=== PATIENT | male | born 1960 ===

== ENCOUNTER 2021-04-12 13:23 | Inpatient (IN) | payer OTHER ==
[~2021-04-12] VITALS: Ht 170.2 cm; Wt 90.9 kg
[2021-04-12] MEDS ORDERED: LISI5 PO (13:44)
[2021-04-12] MEDS ORDERED: ATOR20 PO (13:44)
[2021-04-12 15:26] LABS: Base Excess Venous -2.8 mmol/L; Bicarbonate Venous 22.6 mmol/L (24.0-30.0); PCO2 Venous 34.2 mmHg (38-42); PO2 Venous 66.8 mmHg (38-42); pH Blood Venous 7.41 (7.34-7.37)
[2021-04-12] MEDS ORDERED: ERGO400 PO (18:10)
[2021-04-12] MEDS ORDERED: FISH OIL 1,2001 EAC7 PO (18:10)
--- NOTE | 2021-04-12 18:43 | NUR ---
ARRIVAL TO PCU/SHIFT SUMMARY PATIENT ARRIVED FROM ED VIA GURNEY AND TRANSPORTED TO PCU BED VIA STAND BY ASSIT. PATIENT REPORTS NO CHEST PAIN, PAIN, OR SHORTNESS OF BREATH. PATIENT IS A/OX4. VSS. TELE SR 84. SPO2 >90% ON 60L 70% HIGH FLOW. CALL LIGHT WITHIN REACH AND BED IN LOWEST POSITION. WILL CONTINUE TO MONITOR AND PROVIDE CARE UNTIL HAND OFF WITH NEXT SHIFT.
[2021-04-13 03:41] LABS: BASOPHILS PERCENT AUTO 0 % (0-2); EOSINOPHILS PERCENT AUTO 0 % (0-6); Hematocrit 45.5 % (37.0-53.0); Hemoglobin 15.5 g/dL (13.5-17.5); IMMATURE GRAN ABSOLUTE AUTO 0.02 K/mm3 (0.00-0.10); IMMATURE GRAN PERCENT AUTO 1 % (0-1); LYMPHOCYTES ABSOLUTE AUTO 0.62 K/mm3 (0.84-5.20); LYMPHOCYTES PERCENT AUTO 19 % (21-46); MONOCYTES ABSOLUTE AUTO 0.36 K/mm3 (0.16-1.47); MONOCYTES PERCENT AUTO 11 % (4-13); Mean Corpuscular HGB 31.3 pg (26.0-34.0); Mean Corpuscular HGB Conc 34.1 g/dL (31.5-36.5); Mean Corpuscular Volume 92 fL (80-100); Mean Platelet Volume 9.9 fL (9.1-12.4); NEUTROPHILS ABSOLUTE AUTO 2.28 K/mm3 (1.96-9.15); NEUTROPHILS PERCENT AUTO 70 % (41-73); Platelet Count 199 K/mm3 (150-400); RDW Standard Deviation 44.4 fL (35.1-46.3); Red Blood Cell Count 4.95 M/mm3 (4.30-5.90); White Blood Cell Count 3.28 K/mm3 (4.00-11.30)
[2021-04-13 04:13] LABS: Albumin, Blood 2.4 g/dL (3.4-5.0); Albumin/Globulin Ratio 0.6 (0.8-1.8); Bilirubin, Total 0.4 mg/dL (0.1-1.0); Bun/Creatinine Ratio 20.5 (12.0-20.0); C-REACTIVE PROTEIN, EXT RANGE 6.02 mg/dL (0.000-0.300); Calcium, Blood 8.4 mg/dL (8.5-10.1); Creatinine, Blood 1.27 mg/dL (0.60-1.20); Globulin, Blood 3.9 g/dL (2.2-4.0); Potassium, Blood 4.6 mmol/L (3.5-5.5); Total Protein, Blood 6.3 g/dL (6.4-8.2)
--- NOTE | 2021-04-13 09:58 | NUR ---
CARE ASSUMPTION THIS RN ASSUMED CARE FROM SALUD QUAN AT 0700. PATIENT IS A/OX4. REPORTS NO CHEST PAIN, PAIN, OR SOB. VSS. TELE SR 88. SPO2 >88% ON HIGH FLOW NASAL CANAL 55L 90%. PATIENT ROTATES IN BED INDEPENDENMTLY AND CALLS WHEN NEEDING TO GO TO THE BTHROOM WITH A STAND BY ASSIT. CALL LIGHT WITHIN REACH AND BED IN LOWEST POSITON. WILL CONTINUE TO MONITOR AND PROVIDE CARE
--- NOTE | 2021-04-13 18:17 | NUR ---
SHIFT SUMMARY PATIENT IS A/OX4. VSS. SPO2 >90% ON 50L 75% ON HIGH FLOW NASAL CANCAL. PATRICIA SR. PATIENT REPORTS NO CHEST PAIN, PAIN, OR SHORTNESS OF BREATH. PATIENT CURRENTLY SITTING IN CHAIR AND HAS SAT IN CHAIR SINCE AROUND LUNCH TIME. NO ACUTE CHANGES. CALL LIGHT WITHIN REACH AND BED IN LOWEST POSITION. WILL CONTINUE TO MONITOR AND PROVIDE CARE UNTIL HAND OFF WITH NEXT SHIFT.
[2021-04-14 04:09] LABS: Alanine Aminotransfer (ALT/SGP 94 U/L (12-78); Albumin, Blood 2.6 g/dL (3.4-5.0); Albumin/Globulin Ratio 0.7 (0.8-1.8); Alk Phos 85 U/L (50-136); Anion Gap 7 mmol/L (6-16); Aspartate Aminotrans (AST/SGOT 133 U/L (12-37); Bilirubin, Total 0.4 mg/dL (0.1-1.0); Blood Urea Nitrogen 36 mg/dL (8-24); Bun/Creatinine Ratio 33.6 (12.0-20.0); CO2, Blood 21 mmol/L (21-32); Calcium, Blood 8.6 mg/dL (8.5-10.1); Chloride, Blood 111 mmol/L (98-108); Creatinine, Blood 1.07 mg/dL (0.60-1.20); Globulin, Blood 3.8 g/dL (2.2-4.0); Glomerular Filtration Rate >60 (60-); Glucose, Blood 140 mg/dL (70-99); Sodium, Blood 139 mmol/L (136-145); Total Protein, Blood 6.4 g/dL (6.4-8.2)
--- NOTE | 2021-04-14 09:09 | NUR ---
CARE ASSUMPTION THIS RN ASSUMED CARE AT 0700. PATIENT IS A/OX4. VSS. SPO2 >90% ON HIGH FLOW NASAL CANAL; 45L 65%. OPATIENT REPORTS NO CHEST PAIN, PAIN, OR SHORTNESS OF BREATH. AMBULATES TO AND FROM BED TO CHAIR INDEPDENTLY, BUT IS REMINDED TO CALL US SO WE CAN BE HERE FOR SUPERVISION. PATIENT SITTING IN CHAIR WITH CALL LIGHT WITHIN REACH. WILL CONTINUE TO MONITOR AND PROVIDE CARE
--- NOTE | 2021-04-14 17:15 | NUR ---
SHIFT SUMMARY PATIENT IS A/OX4. VSS. SPO2 >90% ON HIGH FLOW NASAL CANNULA AT 45L AND 65%. TELE SR. PATIENT REPORTS NO PAIN, CHEST PAIN, OR SHORTNESS OF BREATH. PATIENT TRANSFERS INDEPENDENTLY FROM CHAIR TO BED, AND THIS RN ENCOURAGED HIM TO CALL BEFORE HAND SO WE CAN BE THERE A STAND BY ASSIST. NO ACUTE CHANGES THIS SHIFT. CALL LIGHT WITHIN REACH AND PATIENT SITTING IN CHAIR AT BEDSIDE. WILL CONTINUE TO MONITOR AND PROVIDE CARE UNTIL HAND OFF WITH NEXT SHIFT.
--- NOTE | 2021-04-15 05:44 | NUR ---
SHIFT SUMMARY NO ACUTE CHANGES THIS SHIFT. PT A&OX4. PLEASANT. SP02>90% ON AIRVO, 40L 65% FIO2. PT C/O OF DRY COUGH. DESATS TO MID 80'S WITH EXERTION. TELEMETRY READS NSR, HR 70'S. PT USES URINAL OR BSC. SALINE LOCKED. PT DID NOT SLEEP MUCH DURING NIGHT. DID NOT WANT ANY REMEDIES. DID GIVE TYLENOL D/T HIPS HURTING. CALL LIGHT IN REACH.
--- NOTE | 2021-04-15 13:41 | NUR ---
UPDATE PHYSICIAN TO SEE PT. INFORMED THAT PT HAD POSSIBLE ST CHANGES AND EKG IN CHART. NO NEW ORDERS AT THIS TIME.
--- NOTE | 2021-04-15 18:17 | NUR ---
SHIFT SUMMARY PT ALERT AND ORIENTED X 4. HR STABLE. BP STABLE. NO CP OR PRESSURE NOTED. ST ELEVATION NOTED TELEMETRY. EKG DONE, ST ELEVATION ON LEAD 2. PHYSICIAN AWARE. EKG IN CHART. OXYGEN SATURATION TITRATED DOWN FROM 45L AND 65% ON AIRVO TO 35 L AND 55% ON AIRVO. OXYGEN SATURATION MAINTAINED ABOVE 92%. PT EAGER TO IMPROVE AND PRONE THIS NOC. PT UP IN CHAIR THROUGHOUT DAY. PT'S DAUGHTER UPDATED PER PT REQUEST. PT SBA. WILL CONT TO MONITOR UNTIL REPORT GIVEN TO NIGHTSHIFT RN.
--- NOTE | 2021-04-16 06:17 | NUR ---
SHIFT SUMMARY NO ACUTE CHANGES THIS SHIFT. PT A&OX4. SP02>90% ON AIRVO, 40L 55%. PT HAS HARSH DRY COUGH, PAINFUL WHEN COUGHING. TELEMETRY READS NSR, HR 50'S-70'S. PT SELF PRONED MOST OF NIGHT, MOTIVATED AND EAGER TO GET BETTER. UP TO BSC AND URINAL TO VOID. SITTING UP IN CHAIR PART OF SHIFT. AMBULATED BY HIMSELF. CALL LIGHT IN REACH.
--- NOTE | 2021-04-16 18:24 | NUR ---
SHIFT SUMMARY PT ALERT AND ORIENTED X 4. HR STABLE. BP STABLE. NO CP OR PRESSURE. ST ELEVATION NOTED IN MULTIPLE LEADS ON TELE. PHYSICIAN NOTIFIED. NO NEW ORDERS. TELE STRIP IN CHART WITH ST MEASURMENTS. PT SBA TO COMMODE. PT TITRATED DOWN ON AIRVO TO 35L AND 40%, OXYGEN SATURATION MAINTAINED ABOVE 92%. PT UP IN CHAIR DURING SHIFT. PT ENCOURAGED TO PRONE DURING NOC. WILL CONT TO MONITOR UNTIL REPORT GIVEN TO SHELLY QUAN.
--- NOTE | 2021-04-17 06:11 | NUR ---
SHIFT SUMMARY NO ACUTE CHANGES THIS SHIFT. PT A&OX4. MOTIVATED AND PLEASANT. SP02>92 ON AIRVO 40L 55% AT START OF SHIFT. DECREASED TO 8L HIFLO NC AND STILL MAINTAINING ABOVE 92%. PT HAS DRY HARSH COUGH THAT IS PAINFUL. PT USED URINAL TO VOID. SELF PRONED DURING SHIFT. CALL LIGHT IN REACH.
--- NOTE | 2021-04-17 12:17 | NUR ---
PATIENT ALERT AND ORIENTED X4. NEURO WNL. PERRLA. DENIES NUMBNESS/TINGLING. UP WALKING AROUND ROOM. TELE SHOWING SINUS RHTYHM WITH HR 60-70'S. DENIES CHEST PAIN/PRESSURE. SOME ST ELEVATION SHOWN IN ALL LEADS, AWARE NO CONCERNS AT THIS POINT. BP SOFT AT TIMES. ON 8L HIGH FLOW NASAL CANNULA THIS AM. ABLE TO TITRATE DOWN TO 7L. SATING MID 90'S. OCCASIONAL DRY COUGH. LUNGS SOUNDING CLEAR AND DIM IN BASES. USING IS AT BEDSIDE. DENIES ABDOMINAL PAIN/NAUSEA. HOLDING STOOL SOFTNER THIS AM FOR FREQUENT BOWEL MOVEMENTS. UP TO BATHROOM INDEPENDENTLY. REMDESIVIR INFUSING AT THIS TIME. EATING AND DRINKING WELL. DENIES NEEDS AT THIS TIME. TALKING WITH FAMILY ON PHONE THROUGHOUT DAY. WILL CONTINUE TO MONITOR. UP IN RECLINER AT THIS TIME.
--- NOTE | 2021-04-17 17:43 | NUR ---
SHIFT SUMMARY: NO ACUTE CHANGES. SEE PREVIOUS NOTE. NO CHANGES IN TELE. PATIENT NOW ON 6L HIGH FLOW NASAL CANNULA SATING MID 90'S. UP IN ROOM AD LI. USING BATHROOM AND SITTING IN RECLINER. DENIES NEEDS. EATING DINNER AT THIS TIME. REMDESIVIR AND ANTIBOITICS INFUSED. VITAL SIGNS REMAIN STABLE. WILL CONTINUE TO MONITOR AND REPORT OFF TO ONCOMING RN.
--- NOTE | 2021-04-17 21:43 | NUR ---
CARE ASSUMPTION PT IS AXO X4. PT DENYING ANY SOB, PAIN OR NAUSEA. O2 SATS AT 97% ON 6L NC SO O2 TITRATED DOWN TO 4L. VSS AND PT DENYING ANY NEEDS AT THIS TIME. PT IS LYING PRONE IN BED W CALL LIGHT WITHIN REACH.
--- NOTE | 2021-04-18 05:48 | NUR ---
CERTIFIED PROFESSIONAL CODER SUMMARY PT IS AXO X4 AND USES HIS CALL LIGHT TO MAKE HIS NEEDS KNOWN. PT HAS MAINTAINED O2 SATS >91% ON 4L MOST OF THE SHIFT AND WAS TITRATED DOWN TO 3L THIS AM. PT ABLE TO AMBULATE UNASSISTED W/O DESATTING THIS SHIFT. PT HAS OCCASIONAL NONPRODUCTIVE COUGH. NO REPORTS OF ANY PAIN OR NAUSEA. TELE SHOWING SR IN THE 60'S MOST OF THE SHFT BUT SB LOW 49 WHILE ASLEEP THIS SHIFT. PT SLEPT PRONED FOR MOST OF THIS SHIFT. WILL REPORT TO ONCOMING RN.
[2021-04-18 09:58] LABS: Anion Gap 6 mmol/L (6-16); Blood Urea Nitrogen 28 mg/dL (8-24); Bun/Creatinine Ratio 30.8 (12.0-20.0); CO2, Blood 24 mmol/L (21-32); Calcium, Blood 8.2 mg/dL (8.5-10.1); Chloride, Blood 110 mmol/L (98-108); Creatinine, Blood 0.91 mg/dL (0.60-1.20); Glomerular Filtration Rate >60 (60-); Glucose, Blood 140 mg/dL (70-99); Potassium, Blood 3.8 mmol/L (3.5-5.5); Sodium, Blood 140 mmol/L (136-145)
--- NOTE | 2021-04-18 17:07 | NUR ---
PT REMAINS A&OX4. VSS. NO C/O PAIN. AFEBRILE. AUO. NO BM. TOLERATING CURRENT DIET. SUPPLEMENTAL O2 WEANED TO RA- TOLERATING WITH NO S/S OF RESPIRATORY DISTRESS. TENTATIVE D/C HOME TOMORROW. FREQUENT ROUNDS TO ENSURE PT SAFETY. PT IN NO APPARENT DISTRESS AT THIS TIME. WILL CONTINUE TO MONITOR UNTIL TRANSFER OF CARE TO ONCOMING RN.
--- NOTE | 2021-04-18 21:15 | NUR ---
ASSUMED CARE OF PATIENT AT APPROXIMATELY 1910 FROM KVNG Wiseman RN. PATIENT ALERT AND ORIENTED X4; INDEPENDENT IN ROOM. PATIENT DENIES PAIN, NUMBNESS, TINGLING, DIZZINESS, AND NAUSEA. NSR ON TELE; OXYGEN SATURATION ABOVE 90% ON ROOM AIR; WILL PUT NASAL CANNULA ON FOR SLEEP AND PRONE TONIGHT; PATIENT OXYGEN SATURATION DROPPED TO 87% WHILE NAPPING IN CHAIR; WILL USE 1LPM VIA NC. PIV S/L.
--- NOTE | 2021-04-19 00:19 | NUR ---
PATIENT ACCIDENTLY REMOVED 2LPM VIA NC WHILE SLEEPING AND DROPS TO 87%; QUICKLY RECOVERS AFTER NC PUT BACK ON.
--- NOTE | 2021-04-19 06:54 | NUR ---
PATIENT SLEPT ABOUT SIX HOURS PRONE THEN UP TO CHAIR THIS MORNING. NO ACUTE CHANGES. ROOM AIR WHEN AWAKE.
--- NOTE | 2021-04-19 10:14 | NUR ---
REJI hose were applied this morning after assessment of pitting edema of his legs below the knees.
--- NOTE | 2021-04-19 11:24 | NUR ---
home O2 eval in progress. Dr. Hidalgo rounded just a few minutes ago.
--- NOTE | 2021-04-19 12:10 | NUR ---
Notified Dr. Hidalgo of completion of Home O2 evaluation; pt is now on 4 l/min of O2. Kat the shutdown planner called to say that she has ordered the Oxygen to be delivered here to the hospital before pt is discharged home.
--- NOTE | 2021-04-19 14:27 | NUR ---
Received phone call from Kat discharge planner2.5 hours ago that the pt would be set up for [facility] delivery of oxygen for home use. AT this time, follow up call to [facility] answering service and there is no information/account set up yet for this patient, per [place] answering service office manager receptionist. Pt information was given over the phone for O2 to be delivered here to the hospital so that the pt can be discharged home. Spoke with Mata the [facility] rep and he will be delivering the oxygen after stopping by the office.
--- NOTE | 2021-04-19 15:40 | NUR ---
Discharge instructions, follow up appointment, and medications to take at home were reviewed with the patient. He received a folder with all the written materials for discharge. Mata from [facility] came to the hospital with the pt's oxygen for transportation home. This was set up for the patient and pt was taken out in wheelchair to his private vehicle driven by his . Mata is going to the pt's home to meet them there and set up the oxygen for home use as well.
--- NOTE | 2021-04-22 10:27 | NUR ---
Per Dr. Lauri Hidalgo discharge appropriate on: 04/19/21. Patient does not oppose to discharge and ready to go home for the holidays. Patient discharged to his residence. Transportation from hospital to residence provided by family. DME: Home Oxygen setup ordered through [facility]. Patient is COVID positive; [facility] Transition of Care will contact patient to schedule Telehealth hospital follow-up with PCP. No barriers to discharge at this time.
== END 2021-04-19 15:40 | disposition home or self-care (01) | DRG 871 ==
LOC: ER 13:23 → PCU 17:48 → ERHOLD 17:48 → PCU 17:55
PROVIDERS: Emergency Medicine; Internal Medicine; ADMIT Family Medicine
PROC: 8E0ZXY6 Isolation (ICD-10-PCS; principal; 2021-04-12)
PROC: XW033E5 Introduction of Remdesivir Anti-infective into Peripheral Vein, Percutaneous Approach, New Technology Group 5 (ICD-10-PCS; 2021-04-12)
PROC: 3E0333Z Introduction of Anti-inflammatory into Peripheral Vein, Percutaneous Approach (ICD-10-PCS; 2021-04-12)
DX: A41.89 Other specified sepsis (principal); U07.1 COVID-19; J96.01 Acute respiratory failure with hypoxia; J12.82 Pneumonia due to coronavirus disease 2019; N17.9 Acute kidney failure, unspecified; I10 Essential (primary) hypertension; E78.5 Hyperlipidemia, unspecified; E78.2 Mixed hyperlipidemia; R73.03 Prediabetes; E55.9 Vitamin D deficiency, unspecified; Z79.899 Other long term (current) drug therapy
CPT/HCPCS: 36415; 71045; 71260; 80048; 80053; 82803; 83880; 84145; 84484; 85025; 85651; 86140; 93005; 93010; 94660; 94760; 94761; 94762; 96365; 96375; 99285-25; A9270; J0696; J1100; J1650; J7030; J7050; Q9967

== ENCOUNTER → 2021-04-12 | Outpatient (CLI) | payer OTHER ==
[~2021-04-12] MED LIST: ATOR20 PO; ERGO400 PO; FISH OIL 1,2001 EAC7 PO; LISI5 PO
[2021-04-12 13:47] LABS: Albumin, Blood 3.2 g/dL (3.4-5.0); Albumin/Globulin Ratio 0.9 (0.8-1.8); Bilirubin, Total 0.4 mg/dL (0.1-1.0); Creatinine, Blood 1.93 mg/dL (0.60-1.20); Globulin, Blood 3.5 g/dL (2.2-4.0); Total Protein, Blood 6.7 g/dL (6.4-8.2)
[2021-04-12 14:10] LABS: Hematocrit 47.8 % (37.0-53.0); Hemoglobin 16.5 g/dL (13.5-17.5); Mean Corpuscular HGB 31.4 pg (26.0-34.0); Mean Corpuscular HGB Conc 34.5 g/dL (31.5-36.5); Mean Corpuscular Volume 91 fL (80-100); Mean Platelet Volume 10.6 fL (9.1-12.4); Platelet Count 185 K/mm3 (150-400); RDW Coefficient Variation 13.1 % (11.7-14.2); RDW Standard Deviation 43.8 fL (35.1-46.3); Red Blood Cell Count 5.25 M/mm3 (4.30-5.90); White Blood Cell Count 4.53 K/mm3 (4.00-11.30)
[2021-04-12 15:25] LABS: BAND PERCENT MAN 13 % (0-8); BASOPHILS ABSOLUTE MAN 0.04 K/mm3 (0.00-0.23); BASOPHILS PERCENT MAN 1 % (0-2); EOSINOPHILS PERCENT MAN 0 % (0-6); LYMPHOCYTES ABSOLUTE MAN 0.36 K/mm3 (0.84-5.20); LYMPHOCYTES PERCENT MAN 8 % (21-46); MONOCYTES ABSOLUTE MAN 0.58 K/mm3 (0.16-1.47); MONOCYTES PERCENT MAN 13 % (4-13); NEUTROPHILS ABSOLUTE MAN 3.53 K/mm3 (1.96-9.15); SEG NEUTROPHILS PERCENT MAN 65 % (41-73); TOTAL CELLS COUNTED 100
== END | disposition home or self-care (01) ==
LOC: LAB SHORT 13:15
PROVIDERS: Chiropractor
DX: G47.34 Idiopathic sleep related nonobstructive alveolar hypoventilation (principal); R00.0 Tachycardia, unspecified
CPT/HCPCS: 80053; 83880; 85025; 85379

== ENCOUNTER 2021-07-19 07:54 | Day surgery (SDC) | payer OTHER ==
[~2021-07-19] VITALS: Ht 172.7 cm; Wt 87.2 kg
[~2021-07-19 07:54] MED LIST changes: +Aspir 8181 MG PO
[2021-07-19] MEDS ORDERED: ZINC15 (08:17)
== END 2021-07-19 10:21 | disposition home or self-care (01) ==
LOC: ORSCSDS 07:54
PROVIDERS: Internal Medicine Gastroenterology
PROC: 0DBL8ZX Excision of Transverse Colon, Via Natural or Artificial Opening Endoscopic, Diagnostic (ICD-10-PCS; principal; 2021-07-19 09:30)
PROC: 0DBH8ZX Excision of Cecum, Via Natural or Artificial Opening Endoscopic, Diagnostic (ICD-10-PCS; principal; 2021-07-19 09:30)
DX: Z12.11 Encounter for screening for malignant neoplasm of colon (principal); D12.0 Benign neoplasm of cecum; D12.3 Benign neoplasm of transverse colon; Z79.82 Long term (current) use of aspirin; Z79.899 Other long term (current) drug therapy; Z87.891 Personal history of nicotine dependence
CPT/HCPCS: 88305; J2704; J7120